=== PATIENT | female | born 1945 | race Caucasian/White ===

== ENCOUNTER 2019-03-09 18:52 | Inpatient (IN) | payer MEDICARE, OTHER ==
[~2019-03-09] VITALS: Ht 157.5 cm; Wt 59.9 kg
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
--- NOTE | 2019-03-09 19:11 | NUR ---
URINE SAMPLE SENT TO LAB.
[2019-03-09 19:18] LABS: BASOPHILS # (AUTO) 0.1 /CMM (0.0-0.2); BASOPHILS % (AUTO) 0.8 % (0.0-2.0); EOSINOPHILS % (AUTO) 3.8 % (0.0-6.0); HEMATOCRIT 47 % (33-45); HEMOGLOBIN 16.2 g/dL (11.5-14.8); LYMPHOCYTES % (AUTO) 39.4 % (20.0-44.0); MEAN CORPUSCULAR HGB CONC 34 g/dl (31.0-36.0); MEAN CORPUSCULAR VOLUME 101 fL (82-100); MONOCYTES # (AUTO) 0.6 /CMM (0.1-1.30); MONOCYTES % (AUTO) 7.6 % (2.0-12.0); NEUTROPHILS # (AUTO) 3.7 /CMM (1.8-8.9); NEUTROPHILS % (AUTO) 48.4 % (43.0-81.0); PLATELET COUNT (AUTO) 231 /CMM (150-450); RED BLOOD CELL COUNT(AUTO) 4.65 MIL/uL (4.0-5.2); WHITE BLOOD COUNT (AUTO) 7.6 K/uL (4.3-11.0)
--- NOTE | 2019-03-09 19:18 | NUR ---
REPORT GIVEN TO LUIS ZHAO FOR PORFIRIO
[2019-03-09 19:21] LABS: APPEARANCE,URINE Clear (CLEAR); BILIRUBIN,URINE Negative (NEGATIVE); BLOOD, URINE Trace-intact Ery/uL (NEGATIVE); COLOR,URINE Yellow (YELLOW); KETONES,URINE Negative (NEGATIVE); LEUKOCYTE ESTERASE ,URINE Trace (NEGATIVE); NITRITE, URINE Negative (NEGATIVE); PROTEIN,URINE Negative (NEGATIVE); UGLUCOSE Negative (NEGATIVE); UROBILINOGEN,URINE 0.2 EU/dL (0.2)
[2019-03-09 19:27] LABS: CALCIUM, SERUM 8.8 mg/dL (8.5-10.1); CARBON DIOXIDE 28 mmol/L (21-32); CHLORIDE 103 mmol/L (98-107); CREATININE 0.9 mg/dL (0.6-1.3); GLUCOSE 141 mg/dL (74-106); POTASSIUM 4.2 mmol/L (3.5-5.1); SODIUM SERUM 141 mmol/L (136-145); UREA NITROGEN, BLOOD 18 mg/dL (7-18)
[2019-03-09 19:32] LABS: ALANINE AMINOTRANSFERASE 23 U/L (12-78); ALBUMIN 3.6 g/dL (3.4-5.0); ALKALINE PHOSPHATASE 73 U/L (46-116); ASPARTATE AMINOTRANSFERASE 19 U/L (15-37); BILIRUBIN,TOTAL 0.5 mg/dL (0.2-1.0); TOTAL PROTEIN, SERUM 8.1 g/dL (6.4-8.2)
[2019-03-09 19:38] LABS: ACETAMINOPHEN < 5 ug/ml (10-30); ALCOHOL, BLOOD < 3 mg/dL (0-0); SALICYLATE < 2.0 mg/dL (2.8-20.0)
[2019-03-09 19:42] LABS: BACTERIA,URINE Rare /HPF (None Seen); RBC,URINE 2-3/HPF /HPF (0-2); SQUAMOUS EPITHELIAL CELL,UR Few /HPF (None Seen)
[2019-03-09 19:43] LABS: URINE AMORPHOUS URATE Few /HPF (None Seen)
--- NOTE | 2019-03-09 20:19 | NUR ---
GPS 212
[2019-03-09] MEDS ORDERED: MELA3TAB PO (20:29)
--- NOTE | 2019-03-09 20:38 | NUR ---
report given to rosa benitez for godwin pt will be transported to gps
[2019-03-09 20:45] VITALS: BP 122/68
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
[2019-03-09] MEDS ORDERED: ACETAMINOPHEN 325 MG TABLET PO PRN (21:30)
[2019-03-09] MEDS ORDERED: MAGNESIUM HYDROXIDE 30 ML UDC PO PRN (21:30)
[2019-03-09] MEDS ORDERED: BLOOD SUGAR DIAGNOSTIC 1 EACH STRIP IN ONE (21:30)
[2019-03-09] MEDS ORDERED: MAG HYDROX/AL HYDROX/SIMETH 30 ML UDC PO PRN (21:30)
[2019-03-09] MEDS ORDERED: LORAZEPAM 0.5 MG TABLET PO PRN (21:30)
[2019-03-09] MEDS ORDERED: DEXTROSE 50%-WATER 50 ML DISP.SYRIN IV PRN (21:30)
[2019-03-09] MEDS ORDERED: CLONIDINE HCL 0.1 MG TABLET PO PRN (21:30)
[2019-03-09] MEDS: BLOOD SUGAR DIAGNOSTIC 1 EACH STRIP IN SCH (21:45)
[2019-03-10] MEDS: BLOOD SUGAR DIAGNOSTIC 1 EACH STRIP IN SCH ×4 (07:29→21:33)
[2019-03-10] MEDS: DIVALPROEX SODIUM 125 MG CAP.SPRINK PO SCH ×2 (12:30→21:00)
[2019-03-10] MEDS: risperiDONE 0.25 MG TABLET PO SCH ×2 (12:30→16:10)
--- NOTE | 2019-03-10 14:35 | NUR ---
SW contacted Taisha, stockroom coordinator at [facility] Address: [address] [place] [address] who stated pt is able to return once stable for discharge. Taisha also stated that pt does not have family or a responsible democrat.
--- NOTE | 2019-03-10 16:15 | NUR ---
Group Note: SW prompted pt to participate in group session for the topic of discharge planning. Pt cannot participate in group therapy due to her psychosis.
[2019-03-11] MEDS: BLOOD SUGAR DIAGNOSTIC 1 EACH STRIP IN SCH ×4 (07:30→22:00)
[2019-03-11] MEDS: risperiDONE 0.25 MG TABLET PO SCH ×2 (09:00→16:49)
[2019-03-11] MEDS: DIVALPROEX SODIUM 125 MG CAP.SPRINK PO SCH ×2 (09:00→16:49)
--- NOTE | 2019-03-11 09:12 | NUR ---
GPS/RN PT REFUSED AM MEDS OFFERED X3. PT IS DELUSIONAL, AMBULATORY NO ACUTE DISTRESS NOTED
--- NOTE | 2019-03-11 09:36 | NUR ---
INITIAL DISCHARGE PLAN: Patient will return to [facility] Address: [address] [address] . KALI spoke with Taisha management coordinator who stated pt is able to return once stable for discharge. KALI will help form a safe and proper discharge in collaboration with .
--- NOTE | 2019-03-11 16:16 | NUR ---
GROUP NOTE: SW prompted pt to participate in group session on this present day discussing "medication compliance." Pt refused to speak to SW and is also refusing to take medication.
--- NOTE | 2019-03-11 16:50 | NUR ---
GPS/RN PT REFUSED 1700 MEDS OFFERED X3. PT IS DELUSIONAL, AMBULATORY NO ACUTE DISTRESS NOTED. MD GANDHI
[2019-03-12] MEDS: BLOOD SUGAR DIAGNOSTIC 1 EACH STRIP IN SCH ×4 (07:30→22:00)
[2019-03-12] MEDS: DIVALPROEX SODIUM 125 MG CAP.SPRINK PO SCH ×2 (08:24→21:00)
[2019-03-12] MEDS: risperiDONE 0.25 MG TABLET PO SCH ×2 (08:24→17:00)
--- NOTE | 2019-03-12 12:01 | NUR ---
RN NOTES PT CONTINUES TO REFUSE ACCU CHECKS.
--- NOTE | 2019-03-12 15:28 | NUR ---
GROUP NOTE: SW prompted pt to participate in group session on this present day discussing "treatment compliance." Pt refused to speak to SW. SW attempted to provide intervention however, pt was uncooperative and labile. Pt dismissed SW and stated, "there's nothing for you here stop donating your time I have nothing to say." SW asked pt why she has been refusing to take her medication and pt stated, "there is no medication prescribed for me because I don't need any." Pt is scheduled for a RIESE tomorrow 03/13/19 at 11:00am.
--- NOTE | 2019-03-12 20:07 | NUR ---
LYING IN BED, CONFUSED, STATED," THERE IS NO INSURANCE, EVERYTHING LOCKED UP." DISORGANIZED,ENVIRONMENTAL SAFETY CHECK DONE. WILL CONTINUE TO MONITOR Q 15 MINS. TO MAINTAIN SAFETY. SHOWS NO S/S OF ANY PAIN, CALM, NO SCREAMING AT THIS TIME.
--- NOTE | 2019-03-12 21:01 | NUR ---
OFFERED DEPAKOTE 125 MG DUE FOR 2099, REFUSED, STATED, NO, ARE YOU SURE? I'M MESSED UP."
--- NOTE | 2019-03-12 22:04 | NUR ---
Accucheck due at 2200, refused.
[2019-03-13] MEDS: BLOOD SUGAR DIAGNOSTIC 1 EACH STRIP IN SCH ×4 (07:30→21:08)
[2019-03-13] MEDS: risperiDONE 0.25 MG TABLET PO SCH ×2 (08:32→21:00)
[2019-03-13] MEDS: DIVALPROEX SODIUM 125 MG CAP.SPRINK PO SCH ×2 (08:32→21:00)
--- NOTE | 2019-03-13 09:29 | NUR ---
GPS/RN: PT REFUSED AM MEDS,VSS,ACCU CHECK , OFFERED X3.PT CONTINUE REFUSING. PT IS DELUSIONAL, DISORGANIZED, ISOLATIVE IN THE ROOM,WILL CONTINUE MONITORING.
--- NOTE | 2019-03-13 09:35 | NUR ---
GPS RN NOTE: DR PUENTES NOTIFIED PT LABS, Escherichia Coli POSITIVE, NO NEW ORDERS AT THIS TIME.
[2019-03-13] MEDS: CEPHALEXIN MONOHYDRATE 250 MG CAPSULE PO SCH ×3 (12:00→23:14)
--- NOTE | 2019-03-13 14:47 | NUR ---
GROUP NOTE: SW prompted pt to participate in group session on this present day discussing "discharge planning." Pt refused to speak to SW. SW attempted to provide intervention however, pt was uncooperative and labile.
--- NOTE | 2019-03-13 21:10 | NUR ---
PATIENT IS REFUSING RISPERDAL TABLET ORALLY. EXPLAINED TO HER THAT ZYPREXA 2.5 MG IM WILL BE ADMINISTERED. PATIENT IS RIESED.
[2019-03-13] MEDS: OLANZAPINE 10 MG VIAL IM PRN (21:54)
[2019-03-14] MEDS: CEPHALEXIN MONOHYDRATE 250 MG CAPSULE PO SCH ×4 (06:00→23:04)
[2019-03-14] MEDS: BLOOD SUGAR DIAGNOSTIC 1 EACH STRIP IN SCH ×4 (07:30→22:00)
--- NOTE | 2019-03-14 07:56 | NUR ---
GPS RN NOTE PT REFUSED AM ACCU CHECK. OFFERED THREE TIMES, PT STATED "NO PATIENT NUMBER" AND "NO". EDUCATION PROVIDED PT STILL STRONGLY REFUSING.
[2019-03-14] MEDS: DIVALPROEX SODIUM 125 MG CAP.SPRINK PO SCH ×2 (08:50→20:26)
--- NOTE | 2019-03-14 08:50 | NUR ---
GPS RN NOTE PT REFUSING AM PO MEDICATIONS. EDUCATION PROVIDED, PT STATED "YOU MUST HAVE ME MIXED UP WITH SOMEONE ELSE, NO PILLS".
[2019-03-14] MEDS: risperiDONE 0.25 MG TABLET PO SCH ×2 (09:00→20:26)
--- NOTE | 2019-03-14 10:10 | NUR ---
CHERELLE ZHAO NOTE ZYPREXA IM ADMINISTERED ORDERED AND PER JUNE. Addendum: 03/14/19 at 1027 by KAYLA GALVAN RN TIME ADMINISTERED: [id number]
--- NOTE | 2019-03-14 10:13 | NUR ---
GPS RN NOTE PT CONTINUES TO REFUSE AM PO MEDICATIONS.
[2019-03-14] MEDS: OLANZAPINE 10 MG VIAL IM PRN ×2 (10:19→21:59)
--- NOTE | 2019-03-14 11:02 | NUR ---
GPS RN NOTE PT AWAKE IN BED, TALKING WITH DR AT THE BEDSIDE AFTER ZYPREXA IM INJECTION. BREATHING IS EVEN AND UNLABORED NO ACUTE DISTRESS NOTED AT THIS TIME.
--- NOTE | 2019-03-14 16:33 | NUR ---
GPS RN NOTE PT REFUSING ACCU CHECK AGAIN, EDUCATION PROVIDED, PT CONTINUES TO STATE "I DON'T HAVE A PATIENT NUMBER, YOU HAVE THE WRONG PERSON". PT CONTINUES TO STRONGLY REFUSE.
--- NOTE | 2019-03-14 17:18 | NUR ---
GPS RN NOTE PT STRONGLY REFUSING CEPHALEXIN X 3. PT STATED "YOU DON'T HAVE MY PATIENT NUMBER IT'S LOCKED IN A VAULT" AND "NO PATIENT, NO NUMBER, NO PILLS". EDUCATION PROVIDED, PT STRONGLY REFUSED AGAIN.
--- NOTE | 2019-03-14 20:27 | NUR ---
DEPAKOTE 125 MG CAP PO REFUSED FOR 2100 TONIGHT
--- NOTE | 2019-03-14 20:28 | NUR ---
RISPERIDONE 1 MG TAB PO REFUSED.
--- NOTE | 2019-03-14 22:06 | NUR ---
Zyprexa 2.5 mg im given on right deltoid area., refused oral risperidone 1 mg earlier.
[2019-03-15] MEDS: CEPHALEXIN MONOHYDRATE 250 MG CAPSULE PO SCH ×3 (06:00→18:00)
[2019-03-15] MEDS: BLOOD SUGAR DIAGNOSTIC 1 EACH STRIP IN SCH ×5 (07:30→22:00)
[2019-03-15] MEDS: risperiDONE 0.25 MG TABLET PO SCH ×2 (09:00→21:08)
[2019-03-15] MEDS: DIVALPROEX SODIUM 125 MG CAP.SPRINK PO SCH ×2 (09:00→21:08)
--- NOTE | 2019-03-15 09:30 | NUR ---
GPS RN NOTES PATIENT REFUSED ALL MEDS IN AM ORDERED, PATIENT GIVEN ZYPREXA IM ON RT DELTOID.
[2019-03-15] MEDS: OLANZAPINE 10 MG VIAL IM PRN (09:42)
--- NOTE | 2019-03-15 12:13 | NUR ---
GPS RN NOTES PATIENT REFUSED BLOOD SUGAR CHECK AND MEDICATION ORDERED, EDUCATED OF RISKS AND BENEFITS, PATIENT STILL REFUSED. WILL CONTINUE TO MONITOR PATIENT.
[2019-03-15] MEDS: INSULIN REGULAR, HUMAN 100 UNIT/ML 3 ML VIAL SQ PRN (21:34)
--- NOTE | 2019-03-15 22:00 | NUR ---
GPS-RN PATIENT TOOK ALL HER PO MEDS FOR TONIGHT. BUT PT. REFUSED HER BLOOD SUGAR CHECK TO BE TAKEN. EXPLAINED RISKS AND BENEFITS PT. STILL REFUSED.
[2019-03-16] MEDS: CEPHALEXIN MONOHYDRATE 250 MG CAPSULE PO SCH ×4 (00:15→17:19)
[2019-03-16] MEDS: BLOOD SUGAR DIAGNOSTIC 1 EACH STRIP IN SCH ×4 (07:30→22:00)
[2019-03-16 08:00] VITALS: BP 149/89
[2019-03-16] MEDS: risperiDONE 0.25 MG TABLET PO SCH ×2 (09:00→21:51)
[2019-03-16] MEDS: DIVALPROEX SODIUM 125 MG CAP.SPRINK PO SCH ×2 (09:00→21:52)
[2019-03-16] MEDS: OLANZAPINE 10 MG VIAL IM PRN (09:37)
--- NOTE | 2019-03-16 09:50 | NUR ---
GPS/RN-NOTES PATIENT REFUSED ALL 0900 AM MEDICATIONS INCLUDING RISPERDAL 1MG P.O. PATIENT STATED" THE DOCTOR SAID IT' NOT GOOD FOR THE BONES IF I TAKE MEDICATIONS". ZYPREXA 2.5 MG IM GIVEN ORDERED. GIVEN ON THE LEFT BUTTOCK.
--- NOTE | 2019-03-16 14:40 | NUR ---
KALI contacted Taisha, fitness and wellness coordinator at [facility] Address: [address] [place] [address] and provided updated information. KALI informed her that pt has been refusing medications and that she is not taking her Klefex for her UTI, KALI informed her that psychiatrist stated pt will not be ready for another week. Taisha was in agreeable with discharge/treatment plan.
--- NOTE | 2019-03-16 15:40 | NUR ---
Group Note: SW prompted pt to participate in group session for the topic of discharge planning. Pt cannot participate in group therapy due to her psychosis. Pt appeared to be verbally aggressive towards the SW. SW attempted to conduct an individual intervention regarding the pts discharge plan but she stated, "You are not my social work instructor so I do not need to talk to you. My social work instructor already knows about my discharge plan."
[2019-03-16] MEDS ORDERED: OLANZAPINE 10 MG VIAL IM PRN (17:00)
--- NOTE | 2019-03-16 17:41 | NUR ---
GPS/RN-NOTES PATIENT REFUSED PM MEDICATION AND ACCU-CHECK DESPITE EXPLANATIONS RISK AND BENEFITS. STATED" I WILL NOT TAKE MEDICATIONS".OFFERED X3
--- NOTE | 2019-03-16 19:30 | NUR ---
GPS RN NOTE, RECEIVED PATIENT AWAKE AND IN BED, NO S/S OR COMPLAINTS OF PAIN AT THIS TIME. PATIENT IS DISPLAYING NO S/S OF APPARENT DISTRESS AT THIS TIME. PATIENT BREATHING IS UNLABORED WITH EQUAL RISE AND FALL OF THE CHEST. PATIENT IS ALERT AND ORIENTED X 1 ON ROOM AIR WITH A SPO2 98 %. PATIENT IS REFUSING MEDICATION, DISORGANIZED, SUSPICIOUS, PARANOID, CONFUSED, AND NEEDS CONSTANT REORIENTATION. PATIENT DENIES SUICIDE IDEATIONS AND HOMICIDAL IDEATIONS AT THIS TIME. PATIENT ASSISTED WITH TURNING AND REPOSITIONING Q2 HR AND PRN FOR COMFORT AND CIRCULATION. PATIENT HAS NO NEEDS AT THIS TIME. PATIENT EDUCATED ON THE USE OF THE CALL BERNARDO. PATIENT BED SIDE RAILS UP X 2 FOR SAFETY, BED IS LOCKED AND LOW. WILL CONTINUE TO MONITOR Q15 MIN WITH THE HELP OF STAFF TO MAINTAIN SAFETY.
--- NOTE | 2019-03-16 22:03 | NUR ---
GPS RN NOTE, PATIENT REFUSED ACCU CHECK. OFFERED TO DO ACCU CHECK THREE TIMES AND STILL PATIENT REFUSED STATING, " I'M NOT DIABETIC YOU CAN'T MAKE ME DO IT ". EDUCATED PATIENT ON THE RISKS AND BENEFITS OF DOING AND REFUSING ACCU CHECKS. WILL CONTINUE TO MONITOR THIS PATIENT.
[2019-03-17] MEDS: CEPHALEXIN MONOHYDRATE 250 MG CAPSULE PO SCH ×5 (00:07→23:36)
--- NOTE | 2019-03-17 06:26 | NUR ---
GPS RN NOTE, PATIENT REFUSED KEFLEX 500 MG PO Q6HR PRN. OFFERED KEFLEX THREE TIMES AND STILL PATIENT REFUSED. EDUCATED PATIENT ON THE RISKS AND BENEFITS OF TAKING AND REFUSING AFOREMENTIONED MEDICATION. WILL CONTINUE TO MONITOR THIS PATIENT.
[2019-03-17] MEDS: BLOOD SUGAR DIAGNOSTIC 1 EACH STRIP IN SCH ×4 (07:30→21:22)
[2019-03-17 08:00] VITALS: BP 102/62
[2019-03-17] MEDS: DIVALPROEX SODIUM 125 MG CAP.SPRINK PO SCH ×2 (09:03→20:16)
[2019-03-17] MEDS: risperiDONE 0.25 MG TABLET PO SCH (09:04)
[2019-03-17 16:00] VITALS: BP 118/72
[2019-03-17] MEDS: risperiDONE 1 MG TABLET PO SCH (20:16)
[2019-03-18] MEDS: CEPHALEXIN MONOHYDRATE 250 MG CAPSULE PO SCH (05:07)
[2019-03-18] MEDS: BLOOD SUGAR DIAGNOSTIC 1 EACH STRIP IN SCH ×4 (07:30→23:01)
[2019-03-18 08:00] VITALS: BP 108/61
[2019-03-18] MEDS: risperiDONE 1 MG TABLET PO SCH ×2 (09:53→20:43)
[2019-03-18] MEDS: DIVALPROEX SODIUM 125 MG CAP.SPRINK PO SCH ×2 (09:53→20:43)
[2019-03-18 13:13] LABS: CHOLESTEROL 242 mg/dL (<200); HDL CHOLESTEROL 36 mg/dL (40-60); LDL 166 mg/dL (0-99); TRIGLYCERIDES 239 mg/dL (30-150)
[2019-03-18 16:00] VITALS: BP 159/58
[2019-03-18 20:21] VITALS: BP 146/60
[2019-03-18] MEDS: INSULIN REGULAR, HUMAN 100 UNIT/ML 3 ML VIAL SQ PRN (23:02)
[2019-03-19] MEDS: BLOOD SUGAR DIAGNOSTIC 1 EACH STRIP IN SCH ×4 (07:43→21:45)
[2019-03-19 08:00] VITALS: BP 100/63
[2019-03-19] MEDS: DIVALPROEX SODIUM 125 MG CAP.SPRINK PO SCH ×2 (08:34→21:44)
[2019-03-19] MEDS: risperiDONE 1 MG TABLET PO SCH ×2 (08:34→21:45)
--- NOTE | 2019-03-19 13:00 | NUR ---
KALI contacted Taisha, container coordinator at [facility] Address: [address] [address] and informed her pt will be discharged on Saturday03/24/19. Taisha, was agreeable and stated to fax clinical information before discharge. Addendum: 03/19/19 at 1302 by SUNSHINE BASS Taisha cell phone [phone].
--- NOTE | 2019-03-19 13:29 | NUR ---
CALLED DR. JACINTO AND NOTIFIED ABOUT THE KEFLEX AND ORDERED LEVAQUIN 500 MG PO DAILY FOR 5 DAYS.
[2019-03-19] MEDS: LEVOFLOXACIN (500MG) 500 MG TABLET PO SCH (14:12)
[2019-03-19 16:00] VITALS: BP 141/76
[2019-03-19 22:58] VITALS: BP 112/52
--- NOTE | 2019-03-20 07:30 | NUR ---
RN AM SHIFT NOTE PATIENT IN BED AND CONFUSED. PATIENT WILLING TO EAT AND TAKE MEDICATION AT BEDSIDE. PATIENT IS SLEEPING BUT IS ARROUSABLE AT THIS TIME. ORIENTED PATIENT TO SURROUNDINGS AND CONTINUE TO MONITOR FOR SAFETY, CALL LIGHT WITHIN REACH AND BED IN LOW POSITION.
[2019-03-20 08:00] VITALS: BP 147/77
[2019-03-20] MEDS: DIVALPROEX SODIUM 125 MG CAP.SPRINK PO SCH ×2 (08:01→21:25)
[2019-03-20] MEDS: risperiDONE 1 MG TABLET PO SCH ×2 (08:02→21:25)
[2019-03-20 08:16] LABS: BASOPHILS % (AUTO) 0.6 % (0.0-2.0); EOSINOPHILS % (AUTO) 4.3 % (0.0-6.0); HEMATOCRIT 40 % (33-45); HEMOGLOBIN 13.7 g/dL (11.5-14.8); LYMPHOCYTES # (AUTO) 2.2 /CMM (0.8-4.8); LYMPHOCYTES % (AUTO) 36.7 % (20.0-44.0); MEAN CORPUSCULAR HGB CONC 34 g/dl (31.0-36.0); MEAN CORPUSCULAR VOLUME 101 fL (82-100); MONOCYTES # (AUTO) 0.5 /CMM (0.1-1.30); MONOCYTES % (AUTO) 8.2 % (2.0-12.0); NEUTROPHILS % (AUTO) 50.2 % (43.0-81.0); PLATELET COUNT (AUTO) 194 /CMM (150-450)
[2019-03-20 08:25] LABS: BILIRUBIN,TOTAL 0.5 mg/dL (0.2-1.0); CALCIUM, SERUM 8.7 mg/dL (8.5-10.1); POTASSIUM 4.1 mmol/L (3.5-5.1); TOTAL PROTEIN, SERUM 7.1 g/dL (6.4-8.2)
[2019-03-20] MEDS: BLOOD SUGAR DIAGNOSTIC 1 EACH STRIP IN SCH ×4 (11:55→21:26)
[2019-03-20] MEDS: LEVOFLOXACIN (500MG) 500 MG TABLET PO SCH (13:48)
[2019-03-20 16:00] VITALS: BP 115/72
[2019-03-20 20:00] VITALS: BP 121/52
[2019-03-21] MEDS: BLOOD SUGAR DIAGNOSTIC 1 EACH STRIP IN SCH ×4 (07:52→21:52)
--- NOTE | 2019-03-21 07:53 | NUR ---
RN NOTE: 0730 BS 80, NO COVERAGE NEEDED.
[2019-03-21 08:00] VITALS: BP 137/67
[2019-03-21] MEDS: DIVALPROEX SODIUM 125 MG CAP.SPRINK PO SCH ×2 (08:28→21:52)
[2019-03-21] MEDS ORDERED: PALIPERIDONE PALMITATE 117 MG IM ONE (12:00)
--- NOTE | 2019-03-21 12:03 | NUR ---
RN NOTE: 1130 BS 111 MG/DL. NO COVERAGE NEEDED.
[2019-03-21] MEDS: LEVOFLOXACIN (500MG) 500 MG TABLET PO SCH (14:29)
--- NOTE | 2019-03-21 14:50 | NUR ---
RN NOTE: LATE INVEGA DOSE GIVEN [facility] HAD CONTACTED PHARMACY TO INFORM THEM OF THE MISSING MEDICATION. MEDICATION ADMINISTERED AFTER ARRIVAL.
[2019-03-21 16:00] VITALS: BP 124/73
--- NOTE | 2019-03-21 16:43 | NUR ---
RN NOTE: BS 88 MG/DL. NO INSULIN COVERAGE NEEDED.
[2019-03-21 20:00] VITALS: BP 144/78
[2019-03-21] MEDS: TEMAZEPAM 7.5 MG CAPSULE PO PRN (21:52)
[2019-03-22] MEDS: BLOOD SUGAR DIAGNOSTIC 1 EACH STRIP IN SCH ×4 (07:53→21:23)
--- NOTE | 2019-03-22 07:54 | NUR ---
RN NOTE: 0730 BS 83 MG/DL, NO COVERAGE NEEDED.
[2019-03-22 08:00] VITALS: BP 130/76
[2019-03-22] MEDS: DIVALPROEX SODIUM 125 MG CAP.SPRINK PO SCH ×2 (08:19→21:23)
--- NOTE | 2019-03-22 12:04 | NUR ---
RN NOTE: 1130 BS 88 MG/DL, NO COVERAGE NEEDED.
[2019-03-22] MEDS: LEVOFLOXACIN (500MG) 500 MG TABLET PO SCH (14:09)
[2019-03-22 16:00] VITALS: BP 123/53
--- NOTE | 2019-03-22 18:41 | NUR ---
RN NOTE: 1630 BS 79 MG/DL; NO COVERAGE NEEDED
[2019-03-22 20:00] VITALS: BP 118/65
[2019-03-23] MEDS: BLOOD SUGAR DIAGNOSTIC 1 EACH STRIP IN SCH ×4 (07:46→21:26)
[2019-03-23 08:00] VITALS: BP 116/75
[2019-03-23] MEDS: DIVALPROEX SODIUM 125 MG CAP.SPRINK PO SCH ×2 (08:36→21:07)
[2019-03-23] MEDS: LEVOFLOXACIN (500MG) 500 MG TABLET PO SCH (14:30)
[2019-03-23 16:00] VITALS: BP 113/66
[2019-03-23 19:58] VITALS: BP 115/71
[2019-03-23] MEDS: TEMAZEPAM 7.5 MG CAPSULE PO PRN (21:07)
--- NOTE | 2019-03-23 21:07 | NUR ---
GPS RN NOTE PT REQUESTING FOR SLEEPING MED. RESTORIL 7.5 MG PO GIVEN. CONTINUE TO MONITOR HER.
--- NOTE | 2019-03-23 22:07 | NUR ---
GPS RN NOTE PT FALL ASLEEP, NO DISTRESS OR DISCOMFORT NOTED.
[2019-03-24 08:00] VITALS: BP 119/74
[2019-03-24] MEDS: BLOOD SUGAR DIAGNOSTIC 1 EACH STRIP IN SCH ×2 (08:04→12:11)
[2019-03-24] MEDS: DIVALPROEX SODIUM 125 MG CAP.SPRINK PO SCH (08:11)
--- NOTE | 2019-03-24 10:13 | NUR ---
DISCHARGE NOTE: Pt will be discharged at 2:00pm via [facility] to [facility] Address: [address], [place] [address] . Pt has no family to notify. Pts mood is euthymic with congruent affect. Pt denied suicidal/homicidal ideation and denied visual/auditory hallucinations. Pt will be under the care of Psychiatrist: Dr. Werner Sosa Kym [address] [facility] [place]Note 2] [address] [address] [phone] and Air Crew Officer: Dr. Alli Jones [address] [facility] [address], [place] [id number] [phone]. The multidisciplinary exit care form was done, printed, signed, and given to the patient.
[2019-03-24] MEDS: LEVOFLOXACIN (500MG) 500 MG TABLET PO SCH (14:15)
--- NOTE | 2019-03-24 14:30 | NUR ---
PATIENT WAS DISCHARGED TODAY TO [facility] LOCATED [place] [address] [place] [address] VIA AMBULN[facility]. PATIENT IS A&OX1-2, CALM, COOPERATIVE, PLEASANTLY CONFUSED, REDIRECTABLE, IN STABLE CONDITION. VSS. NO ACUTE DISTRESS NOTED. NO COMPLAINTS OF PAIN OR ANY DISCOMFORT. COMPLIANT WITH MEDICATION MANAGEMENT. COOPERATIVE WITH PLAN OF CARE. PSYCHIATRIC TREATMENT PLANS MET. MEDICAL TREATMENT PLANS DEFERRED FOR CONTINUAL MONITORING. DENIES SI/HI/AVH AT THE TIME OF DISCHARGE. PT REFUSED SKIN ASSESSMENT AND PICTURES AT DISCHARGE. EDUCATED PATIENT ABOUT AFTERCARE WITH COPY PROVIDED. RETURNED PERSONAL BELONGINGS TO PATIENT. PT IS MEDICALLY CLEARED FOR DISCHARGE BY DR. JACINTO. MEDICATIONS RECONCILED WITH DR. HAMILTON ALONG WITH PSYCHIATRIC DISCHARGE ORDERS. VERBAL ORDER FOR INVEGA SUSTENNA 78MG IM DUE ON 03/31/19 AND MONTHLY THEREAFTER (04/30/19). REPORT WAS GIVEN TO CECE JEFFRIES AT [phone]. DISCHARGE PAPERWORK SIGNED. FOR FOLLOW UP WITH PSYCHIATRIST AND GROUP ROOMS COORDINATOR WITHIN 1 WEEK. PATIENT LEFT THE [facility] GPS AT 1420 VIA AMBULANCE AND LEFT THE UNIT ON A GURNEY ACCOMPANIED BY 2 PULP BEATER.
== END 2019-03-24 14:30 | DRG 885 ==
LOC: ER 19:06 → GPS 19:58
PROVIDERS: ADMIT Psychiatry & Neurology Psychosomatic Medicine; ATTEND Nurse Practitioner Acute Care
DX: F25.0 Schizoaffective disorder, bipolar type (principal); F23 Brief psychotic disorder; N39.0 Urinary tract infection, site not specified; G30.9 Alzheimer's disease, unspecified; F02.80 Dementia in other diseases classified elsewhere, unspecified severity, without behavioral disturbance, psychotic disturbance, mood disturbance, and anxiety; I10 Essential (primary) hypertension; E11.9 Type 2 diabetes mellitus without complications; B96.20 Unspecified Escherichia coli [E. coli] as the cause of diseases classified elsewhere; Z73.6 Limitation of activities due to disability
CPT/HCPCS: 36415; 80048-TC; 80053-TC; 80061-TC; 80076-TC; 80164-TC; 80305; 81000-TC; 82962-TC; 85025-TC; 87081-TC; 87086-TC; 87186-TC; G0480; J1815; J3490